=== PATIENT | female | born 1945 | race Caucasian/White ===

== ENCOUNTER 2021-03-13 06:19 | Inpatient (IN) | payer MEDICARE, MEDICAID ==
[~2021-03-13] VITALS: Ht 160 cm; Wt 118.0 kg
[~2021-03-13 06:19] MED LIST: CITA20TA28 PO; FURO-150 PO; LABE100T5 PO; LISI10TA27 PO; OMEP40CA21 PO
[2021-03-13] MEDS: nitroGLYCERIN 0.4mg SUBLingual tab SL PRN ×3 (06:33→06:54)
[2021-03-13] MEDS ORDERED: nitroGLYCERIN 0.4mg/hour patch TD ONE (06:35)
[2021-03-13] MEDS ORDERED: enalaprilat dihydrate 2.5mg/2ml vial IV ONE (06:55)
[2021-03-13] MEDS: carVEDilol 12.5mg tablet PO SCH ×2 (07:12→19:45)
[2021-03-13 07:24] LABS: BASOPHILS # (AUTO) 0.1 X10'3 (0-0.2); BASOPHILS % (AUTO) 0.9 % (0-1); EOSINOPHILS # (AUTO) 0.6 X10'3 (0-0.9); EOSINOPHILS % (AUTO) 7.7 % (0-6); HEMATOCRIT 32.4 % (35.0-45.0); HEMOGLOBIN 10.6 g/dl (12.0-16.0); LYMPHOCYTES # (AUTO) 1.5 X10'3 (1.1-4.8); LYMPHOCYTES % (AUTO) 20.1 % (21-51); MEAN CORPUSCULAR HEMOGLOBIN 28.5 PG (27.0-31.0); MEAN CORPUSCULAR HGB CONC 32.8 g/dL (33.0-36.5); MEAN CORPUSCULAR VOLUME 86.9 FL (78-98); MEAN PLATELET VOLUME 8.1 FL (7.4-10.4); MONOCYTES # (AUTO) 0.5 X10'3 (0-0.9); MONOCYTES % (AUTO) 6.9 % (2-12); NEUTROPHILS # (AUTO) 4.8 X10'3 (1.8-7.7); NEUTROPHILS % (AUTO) 64.4 % (42-75); PLATELET COUNT 215 X10'3 (140-440); RED BLOOD COUNT 3.73 X10'6 (4.20-5.60); WHITE BLOOD COUNT 7.4 X10'3 (4.5-11.0)
[2021-03-13 07:31] LABS: ALANINE AMINOTRANSFERASE 16 U/L (12-78); ALBUMIN 3.1 G/DL (3.4-5.0); ALBUMIN/GLOBULIN RATIO 0.9 (1.1-1.5); ALKALINE PHOSPHATASE 76 IU/L (46-116); ANION GAP 9 (8-16); ASPARTATE AMINO TRANSFERASE 17 U/L (10-37); BILIRUBIN,TOTAL 0.4 MG/DL (0.1-1.0); BLOOD UREA NITROGEN 20 MG/DL (7-18); BUN/CREATININE RATIO 24.1 (6.6-38.0); CALCIUM 8.8 MG/DL (8.5-10.1); CHLORIDE 108 MMOL/L (99-107); CREATININE 0.83 MG/DL (0.40-0.90); GLUCOSE 114 MG/DL (70-104); POTASSIUM 4.2 MMOL/L (3.5-5.1); SODIUM 144 MMOL/L (135-145); TOTAL CARBON DIOXIDE 26.9 MMOL/L (24-32); TOTAL PROTEIN 6.5 G/DL (6.4-8.2); eGFR 67 ML/MIN
[2021-03-13] MEDS ORDERED: metoprolol tartrate 1mg/ml inj IV ONE (08:05)
[2021-03-13] MEDS ORDERED: furosemide 10 MG/1 ML 10ml inj IV ONE (08:05)
[2021-03-13] MEDS ORDERED: NIFEdipine XL 30mg tablet PO ONE (08:15)
[2021-03-13] MEDS ORDERED: POTA-207 PO (08:17)
[2021-03-13] MEDS ORDERED: FURO-150 PO ×2 (08:17→11:04)
--- NOTE | 2021-03-13 10:42 | NUR ---
DR BLAIR MADE AWARE OF SPO2 87% ON ROOM AIR AFTER TRANSFERING FROM BEDSIDE COMMODE TO BED. PLACED BACK ON 2L NC SPO2 93%, BP 135/65, HR 58. NO NEW ORDERS FROM MD AT THIS TIME. PATIENT AWAKE, ALERT, NO SIGNS OF DISTRESS NOTED, ALL SAFETY MEASURES IN PLACE, CALL LIGHT WITHIN REACH.
[2021-03-13] MEDS ORDERED: LISI20TA28 PO (11:04)
[2021-03-13] MEDS ORDERED: FURO20TA4 PO (11:04)
[2021-03-13] MEDS ORDERED: OMEP-50 PO (11:04)
[2021-03-13] MEDS ORDERED: LABE100T5 PO (11:04)
--- NOTE | 2021-03-13 11:53 | NUR ---
CALL TO SISTER CLARIBEL AT THIS TIME TO INFORM HER PATIENT IS GETTING ADMITTED TO HOSPITAL. ALL QUESTIONS AND CONCERNS ADDRESSED PER PATIENT REQUEST.
[2021-03-13] MEDS ORDERED: magnesium Cl slow-release 64mg tablet PO PRN (11:55)
[2021-03-13] MEDS ORDERED: potassium CL 10mEq/100ml bag 100 ML IV PRN (11:55)
[2021-03-13] MEDS ORDERED: magnesium 4gm in 100ml NS 100 ML IV PRN (11:55)
[2021-03-13] MEDS ORDERED: potassium Cl 20 mEq SR tablet PO PRN ×2 (11:55)
[2021-03-13] MEDS ORDERED: ondansetron/PF 4mg/2ml inj IV PRN (11:55)
[2021-03-13] MEDS ORDERED: PERFLUTREN PROTEIN-A MICROSPHR (Optison) 0.22 MG/ML 3ML VIAL IV ONE (11:55)
[2021-03-13] MEDS ORDERED: morphine 2 MG/ML inj. syringe IV PRN (11:55)
[2021-03-13] MEDS ORDERED: HYDROcodone/acetaminophen 5mg/325mg tablet PO PRN (11:55)
[2021-03-13] MEDS ORDERED: mag hydrox/Alum hydrox/simeth 30ml oral suspension PO PRN (11:55)
[2021-03-13] MEDS ORDERED: magnesium 2GM in 50ml NS 50 ML IV PRN (11:55)
[2021-03-13] MEDS ORDERED: acetaminophen 325mg tablet PO PRN ×2 (11:55)
--- NOTE | 2021-03-13 15:49 | NUR ---
telephone report given to quinten fofana.
[2021-03-13 18:00] VITALS: BP 123/73
[2021-03-13] MEDS: heparin, porcine 5000 units/ml vial SQ SCH (19:46)
[2021-03-13] MEDS: K and/or MAG REPLACEMENT MC SCH (19:47)
[2021-03-13] MEDS: furosemide 10 MG/1 ML 10ml inj IV SCH (19:47)
[2021-03-13 22:00] VITALS: BP 130/60
[2021-03-14 02:00] VITALS: BP 135/65
[2021-03-14 06:00] VITALS: BP 134/57
--- NOTE | 2021-03-14 06:15 | NUR ---
Patient in room PCU 3017. I have received report from Catherine MALDONADO and had the opportunity to ask questions and assume patient care.
--- NOTE | 2021-03-14 06:36 | NUR ---
Patient report given, questions answered & plan of care reviewed with oncoming RN.
[2021-03-14 06:58] LABS: BASOPHILS % (AUTO) 0.6 % (0-1); EOSINOPHILS # (AUTO) 0.5 X10'3 (0-0.9); EOSINOPHILS % (AUTO) 6.3 % (0-6); HEMATOCRIT 30.4 % (35.0-45.0); HEMOGLOBIN 10.2 g/dl (12.0-16.0); LYMPHOCYTES # (AUTO) 1.3 X10'3 (1.1-4.8); LYMPHOCYTES % (AUTO) 17.1 % (21-51); MEAN CORPUSCULAR HEMOGLOBIN 28.8 PG (27.0-31.0); MEAN CORPUSCULAR HGB CONC 33.4 g/dL (33.0-36.5); MEAN CORPUSCULAR VOLUME 86.3 FL (78-98); MEAN PLATELET VOLUME 8.1 FL (7.4-10.4); MONOCYTES # (AUTO) 0.6 X10'3 (0-0.9); MONOCYTES % (AUTO) 7.5 % (2-12); NEUTROPHILS # (AUTO) 5.1 X10'3 (1.8-7.7); NEUTROPHILS % (AUTO) 68.5 % (42-75); PLATELET COUNT 220 X10'3 (140-440); RED BLOOD COUNT 3.53 X10'6 (4.20-5.60); RED CELL DISTRIBUTION WIDTH 14.7 % (11.5-14.5); WHITE BLOOD COUNT 7.4 X10'3 (4.5-11.0)
[2021-03-14 07:34] LABS: ALANINE AMINOTRANSFERASE 16 U/L (12-78); ALBUMIN 3.2 G/DL (3.4-5.0); ALKALINE PHOSPHATASE 76 IU/L (46-116); ANION GAP 10 (8-16); ASPARTATE AMINO TRANSFERASE 15 U/L (10-37); BILIRUBIN,TOTAL 0.6 MG/DL (0.1-1.0); BLOOD UREA NITROGEN 19 MG/DL (7-18); BUN/CREATININE RATIO 26.8 (6.6-38.0); CHLORIDE 106 MMOL/L (99-107); CREATININE 0.71 MG/DL (0.40-0.90); GLUCOSE 112 MG/DL (70-104); POTASSIUM 3.8 MMOL/L (3.5-5.1); SODIUM 143 MMOL/L (135-145); TOTAL CARBON DIOXIDE 27.2 MMOL/L (24-32); TOTAL PROTEIN 6.5 G/DL (6.4-8.2); eGFR 80 ML/MIN
[2021-03-14] MEDS ORDERED: labetalol 100mg tablet PO SCH (08:00)
[2021-03-14] MEDS ORDERED: NIFEdipine XL 30mg tablet PO SCH (08:00)
[2021-03-14] MEDS: K and/or MAG REPLACEMENT MC SCH (08:00)
[2021-03-14] MEDS: furosemide 10 MG/1 ML 10ml inj IV SCH (08:24)
[2021-03-14] MEDS: carVEDilol 12.5mg tablet PO SCH (08:24)
[2021-03-14] MEDS: heparin, porcine 5000 units/ml vial SQ SCH (08:25)
[2021-03-14] MEDS ORDERED: pantoprazole 40mg Tablet.DR PO SCH (10:00)
[2021-03-14] MEDS ORDERED: FURO-150 PO (10:02)
[2021-03-14] MEDS ORDERED: NIFE30TA95 PO (10:02)
[2021-03-14] MEDS ORDERED: NITR0.4T51 SL (10:02)
--- NOTE | 2021-03-14 10:49 | NUR ---
O2 Sat at rest on room air:_91_% If below 89%: Recovery O2 Sat at rest on ___LPM:___%:___% via (mask/nasal cannula, etc..) No further documentation is necessary. If O2 Sat did not drop below 89% on room air,ambulate patient on room air. O2 Sat while ambulating on room air:_86_% Recovery O2 Sat while ambulating on _2_LPM:_92_% No further documentation is necessary. If patient does not drop below 89% while ambulating, he/she does not qualify for home O2.
[2021-03-14 11:00] VITALS: BP 117/51
--- NOTE | 2021-03-14 15:20 | NUR ---
Pt DC'd home with sister. Pt alert and oriented and vitals WNL upon DC. per Dr. Simpson: Pt is stable for DC. Iv removed, canula intact. Tele-box removed and returned to tele-tech. DC paperwork printed out and gone over with Pt. Allowed Pt to ask questions concerning Dc and then answered them. New prescriptions called into [facility] pharmacy on [address] Oxygen concentrater dropped off for Pt, pt educated on the use of concentrator. Pt stated that she has a follow up with Dr. Mobley on 04/13/20 and that she will make a follow up with her PCP in 2 weeks time. Pt's belongings gathered and sent with Pt. Pt wheeled down to lobby via wheel chair and left in private vehicle with sister.
== END 2021-03-14 15:20 | disposition home or self-care (01) | DRG 304 ==
LOC: ER 06:19 → ED HOLD 12:05 → UNDOADMIN 12:09 → ED HOLD 12:09 → PCU 3S 16:00
PROVIDERS: ADMIT Internal Medicine; ATTEND Internal Medicine
DX: I16.0 Hypertensive urgency (principal); I50.33 Acute on chronic diastolic (congestive) heart failure; Z68.42 Body mass index [BMI] 45.0-49.9, adult; I11.0 Hypertensive heart disease with heart failure; Z66 Do not resuscitate; H54.8 Legal blindness, as defined in USA; Z20.822 Contact with and (suspected) exposure to COVID-19; R09.82 Postnasal drip; M54.9 Dorsalgia, unspecified; E66.01 Morbid (severe) obesity due to excess calories; I35.0 Nonrheumatic aortic (valve) stenosis; K22.70 Barrett's esophagus without dysplasia; G89.29 Other chronic pain; Z85.3 Personal history of malignant neoplasm of breast; Z87.891 Personal history of nicotine dependence; Z88.2 Allergy status to sulfonamides
CPT/HCPCS: 36415; 71045; 80053; 83880; 84484; 85025; 87635; 93005; 93308; 96374; 96375; 99285; C9803; G0378; J1644; J1940; J3490

== ENCOUNTER 2021-05-07 14:20 | Day surgery (SDC) | payer MEDICARE, BC ==
[2021-05-02 12:24] LABS: BASOPHILS % (AUTO) 0.7 % (0-1); EOSINOPHILS # (AUTO) 0.2 X10'3 (0-0.9); EOSINOPHILS % (AUTO) 3.8 % (0-6); HEMATOCRIT 34.3 % (35.0-45.0); HEMOGLOBIN 10.7 g/dl (12.0-16.0); LYMPHOCYTES # (AUTO) 1.2 X10'3 (1.1-4.8); LYMPHOCYTES % (AUTO) 19.6 % (21-51); MEAN CORPUSCULAR HEMOGLOBIN 27.2 PG (27.0-31.0); MEAN CORPUSCULAR HGB CONC 31.2 g/dL (33.0-36.5); MEAN CORPUSCULAR VOLUME 87.4 FL (78-98); MEAN PLATELET VOLUME 7.9 FL (7.4-10.4); MONOCYTES # (AUTO) 0.5 X10'3 (0-0.9); MONOCYTES % (AUTO) 7.5 % (2-12); NEUTROPHILS # (AUTO) 4.2 X10'3 (1.8-7.7); NEUTROPHILS % (AUTO) 68.4 % (42-75); PLATELET COUNT 217 X10'3 (140-440); RED BLOOD COUNT 3.92 X10'6 (4.20-5.60); RED CELL DISTRIBUTION WIDTH 14.9 % (11.5-14.5); WHITE BLOOD COUNT 6.1 X10'3 (4.5-11.0)
[2021-05-02 12:37] LABS: APTT 24 SECONDS (22-32)
[2021-05-02 13:03] LABS: ALBUMIN 3.3 G/DL (3.4-5.0); ANION GAP 7 (8-16); BLOOD UREA NITROGEN 22 MG/DL (7-18); BUN/CREATININE RATIO 22.9 (6.6-38.0); CALCIUM 8.7 MG/DL (8.5-10.1); CHLORIDE 108 MMOL/L (99-107); CREATININE 0.96 MG/DL (0.40-0.90); GLUCOSE 107 MG/DL (70-104); POTASSIUM 4.6 MMOL/L (3.5-5.1); SODIUM 141 MMOL/L (135-145); TOTAL CARBON DIOXIDE 25.8 MMOL/L (24-32); eGFR 56 ML/MIN
[~2021-05-07] VITALS: Ht 160 cm; Wt 122.2 kg
[~2021-05-07 14:20] MED LIST changes: -LISI10TA27 PO; +NIFE30TA95 PO; +NITR0.4T51 SL; +OMEP20CA16 PO; -OMEP40CA21 PO
[2021-05-07] MEDS ORDERED: verapamil 2.5 mg/ml inj IV ONE ×2 (14:27→14:47)
[2021-05-07] MEDS ORDERED: fentaNYL/PF 50MCG/1 ML 2ML syringe ONE (14:28)
[2021-05-07] MEDS ORDERED: iohexol 350MG/ML 100ml bottle IV ONE (14:28)
[2021-05-07] MEDS ORDERED: midazolam 1 mg/ML 2ml injection ONE ×2 (14:28→16:18)
[2021-05-07] MEDS ORDERED: LIDOcaine 1% (10mg/ml)w/preservative injection 20ml MDV ONE (14:28)
[2021-05-07] MEDS ORDERED: nitroGLYCERIN-Tridil 50MG/D5W 250 ML IV ONE (14:28)
[2021-05-07] MEDS ORDERED: heparin 1,000unit/ml 10ml vial 10 ML ONE (14:28)
[2021-05-07] MEDS ORDERED: LIDOcaine/PRILOcaine 5gm cream TP ONE (14:35)
[2021-05-07 14:42] VITALS: BP 144/46
[2021-05-07] MEDS ORDERED: LORazepam 0.5 MG tablet PO PRN (14:45)
[2021-05-07] MEDS ORDERED: diphenhydrAMINE 25mg capsule PO PRN (14:45)
[2021-05-07] MEDS ORDERED: normal saline 1,000 ML IV SCH (14:45)
[2021-05-07] MEDS ORDERED: ASPI-1071 PO (15:04)
[2021-05-07] MEDS ORDERED: NITR0.4T48 (15:04)
[2021-05-07] MEDS ORDERED: CITA20TA28 PO (15:04)
[2021-05-07] MEDS ORDERED: FURO20TA4 PO (15:04)
[2021-05-07] MEDS ORDERED: NIFE60TA79 PO (15:04)
[2021-05-07] MEDS ORDERED: iohexol 350 MG/ML 50ML vial IV ONE (16:29)
[2021-05-07 16:56] VITALS: BP 148/73
[2021-05-07] MEDS ORDERED: proCHLORperazine 10 MG/2 ml inj IV PRN (17:05)
[2021-05-07] MEDS ORDERED: HYDROcodone/acetaminophen 5mg/325mg tablet PO PRN (17:05)
[2021-05-07] MEDS ORDERED: OXAZEpam 15mg capsule PO PRN (17:05)
[2021-05-07] MEDS ORDERED: ondansetron/PF 4mg/2ml inj IV PRN (17:05)
[2021-05-07] MEDS ORDERED: HYDROcodone/acetaminophen 10/325mg tab PO PRN (17:05)
[2021-05-07 17:15] VITALS: BP 174/86
[2021-05-07 17:30] VITALS: BP 159/72
== END 2021-05-07 19:35 | disposition home or self-care (01) ==
LOC: SSTAY O 14:20
PROVIDERS: ATTEND Internal Medicine Interventional Cardiology
DX: I35.0 Nonrheumatic aortic (valve) stenosis (principal); I25.10 Atherosclerotic heart disease of native coronary artery without angina pectoris; I11.0 Hypertensive heart disease with heart failure; I50.9 Heart failure, unspecified; K21.9 Gastro-esophageal reflux disease without esophagitis; F32.A Depression, unspecified; E66.01 Morbid (severe) obesity due to excess calories; Z68.42 Body mass index [BMI] 45.0-49.9, adult; Z79.899 Other long term (current) drug therapy; Z85.3 Personal history of malignant neoplasm of breast; Z90.11 Acquired absence of right breast and nipple; Z98.84 Bariatric surgery status; Z88.2 Allergy status to sulfonamides; Z87.891 Personal history of nicotine dependence
CPT/HCPCS: 36415; 80048; 85025; 85610; 85730; 93456; 99152; C1751; C1769; C1894; J1644; J2250; J3010; J3490; Q0163; Q9967; 99153; A4620; A5120; A6258

== ENCOUNTER 2021-06-12 08:05 | Outpatient (CLI) | payer MEDICARE, BC ==
[~2021-06-12] VITALS: Ht 160 cm; Wt 117.9 kg
[~2021-06-12 08:05] MED LIST changes: +ASPI-1071 PO; -FURO-150 PO; +FURO20TA4 PO; -NIFE30TA95 PO; +NIFE60TA79 PO; +NITR0.4T48; -NITR0.4T51 SL
[2021-06-12 08:49] LABS: BASOPHILS # (AUTO) 0.1 X10'3 (0-0.2); BASOPHILS % (AUTO) 1.2 % (0-1); EOSINOPHILS # (AUTO) 0.2 X10'3 (0-0.9); EOSINOPHILS % (AUTO) 3.7 % (0-6); HEMATOCRIT 32.8 % (35.0-45.0); HEMOGLOBIN 10.7 g/dl (12.0-16.0); LYMPHOCYTES # (AUTO) 1.1 X10'3 (1.1-4.8); LYMPHOCYTES % (AUTO) 19.2 % (21-51); MEAN CORPUSCULAR HEMOGLOBIN 26.9 PG (27.0-31.0); MEAN CORPUSCULAR HGB CONC 32.6 g/dL (33.0-36.5); MEAN CORPUSCULAR VOLUME 82.6 FL (78-98); MEAN PLATELET VOLUME 8.1 FL (7.4-10.4); MONOCYTES # (AUTO) 0.4 X10'3 (0-0.9); MONOCYTES % (AUTO) 6.8 % (2-12); NEUTROPHILS % (AUTO) 69.1 % (42-75); PLATELET COUNT 242 X10'3 (140-440); RED BLOOD COUNT 3.97 X10'6 (4.20-5.60); RED CELL DISTRIBUTION WIDTH 15.7 % (11.5-14.5); WHITE BLOOD COUNT 5.8 X10'3 (4.5-11.0)
[2021-06-12 08:51] LABS: APTT 24 SECONDS (22-32)
[2021-06-12 08:53] LABS: ALANINE AMINOTRANSFERASE 18 U/L (12-78); ALBUMIN 3.3 G/DL (3.4-5.0); ALBUMIN/GLOBULIN RATIO 0.9 (1.1-1.5); ALKALINE PHOSPHATASE 71 IU/L (46-116); ANION GAP 10 (8-16); ASPARTATE AMINO TRANSFERASE 19 U/L (10-37); BILIRUBIN,TOTAL 0.3 MG/DL (0.1-1.0); BLOOD UREA NITROGEN 26 MG/DL (7-18); BUN/CREATININE RATIO 28.6 (6.6-38.0); CALCIUM 8.8 MG/DL (8.5-10.1); CHLORIDE 107 MMOL/L (99-107); CREATININE 0.91 MG/DL (0.40-0.90); GLUCOSE 101 MG/DL (70-104); POTASSIUM 4.2 MMOL/L (3.5-5.1); SODIUM 143 MMOL/L (135-145); TOTAL PROTEIN 6.9 G/DL (6.4-8.2); eGFR 60 ML/MIN
[2021-06-12 09:09] LABS: ABG BASE EXCESS -0.1 mmol/L (-2.0-2.0); ABG HCO3 24.3 mmol/L (22.0-26.0); ABG OXYGEN SATURATION 93.4 % (94-97); ABG PCO2 (T) 38.8 mmHg (32.0-45.0); ABG PO2 (T) 66.8 mmHg (75.0-100.0); ALLEN'S TEST POSITIVE; FCOHb 1.2 % (0.0-3.9); FMetHb 0.3 % (0.0-1.5); TOTAL HEMOGLOBIN 11.3 G/dl (12.0-16.0)
[2021-06-12] MEDS ORDERED: albuterol 2.5 MG/3 ML nebule NEB ONE (09:10)
[2021-06-12] MEDS ORDERED: IODIXANOL 320 MG/ML INFUS..BTL 50ML IV ONE (09:35)
[2021-06-12] MEDS ORDERED: IODIXANOL 320 MG/ML INFUS..BTL 100ML IV ONE (09:35)
== END 2021-06-12 23:59 | disposition home or self-care (01) ==
LOC: RAD 08:05
PROVIDERS: ATTEND Internal Medicine Cardiovascular Disease
DX: K57.30 Diverticulosis of large intestine without perforation or abscess without bleeding (principal); M47.819 Spondylosis without myelopathy or radiculopathy, site unspecified; M16.10 Unilateral primary osteoarthritis, unspecified hip; M79.89 Other specified soft tissue disorders; I70.0 Atherosclerosis of aorta; I27.20 Pulmonary hypertension, unspecified; R94.2 Abnormal results of pulmonary function studies; I08.0 Rheumatic disorders of both mitral and aortic valves; R06.02 Shortness of breath; I65.29 Occlusion and stenosis of unspecified carotid artery; Z20.822 Contact with and (suspected) exposure to COVID-19; Z90.49 Acquired absence of other specified parts of digestive tract
CPT/HCPCS: 36415; 36600; 71046; 71275; 74174; 80053; 82803; 85018; 85025; 85610; 85730; 87635; 94060; 94727; 94729; 94760; C9803; Q9967

== ENCOUNTER 2023-12-26 11:03 | Inpatient (IN) | payer MEDICARE, MEDICAID ==
[~2023-12-26] VITALS: Ht 157.5 cm; Wt 124.7 kg
[2023-12-26] VITALS (12 sets, daily range): BP systolic 91–141; BP diastolic 53–79; PULSE 122–128; RESP 15–19; TEMP 97.6–98.6; O2SAT 92–97
[~2023-12-26 11:03] MED LIST changes: -LABE100T5 PO; +LABE100T8 PO; +LOPE-144 PO; +NIFE-73 PO; -NIFE60TA79 PO; -NITR0.4T48; +NITR0.4T51 SL
[2023-12-26 11:52] LABS: BASOPHILS % (AUTO) 0.7 % (0-1); EOSINOPHILS # (AUTO) 0.2 X10'3 (0-0.9); EOSINOPHILS % (AUTO) 3.7 % (0-6); HEMATOCRIT 29.2 % (35.0-45.0); HEMOGLOBIN 9.3 g/dl (12.0-16.0); LYMPHOCYTES # (AUTO) 1.1 X10'3 (1.1-4.8); LYMPHOCYTES % (AUTO) 18.5 % (21-51); MEAN CORPUSCULAR HGB CONC 31.8 g/dL (33.0-36.5); MEAN CORPUSCULAR VOLUME 84.7 FL (78-98); MEAN PLATELET VOLUME 8.2 FL (7.4-10.4); MONOCYTES # (AUTO) 0.4 X10'3 (0-0.9); MONOCYTES % (AUTO) 7.5 % (2-12); NEUTROPHILS # (AUTO) 4.2 X10'3 (1.8-7.7); NEUTROPHILS % (AUTO) 69.6 % (42-75); PLATELET COUNT 210 X10'3 (140-440); RED BLOOD COUNT 3.45 X10'6 (4.20-5.60); RED CELL DISTRIBUTION WIDTH 16.5 % (11.5-14.5)
[2023-12-26] MEDS: nitroGLYCERIN 1gm ointment UD TP ONE (11:52)
[2023-12-26] MEDS: furosemide 10 MG/1 ML 10ml inj IV ONE (11:52)
[2023-12-26] MEDS: sotalol HCl 40mg (1/2 tablet) PO ONE (12:21)
[2023-12-26 12:32] LABS: ALANINE AMINOTRANSFERASE 23 U/L (12-78); ALBUMIN 2.9 G/DL (3.4-5.0); ALBUMIN/GLOBULIN RATIO 0.8 (1.1-1.5); ALKALINE PHOSPHATASE 108 IU/L (46-116); ANION GAP 5 (8-16); ASPARTATE AMINO TRANSFERASE 17 U/L (10-37); BILIRUBIN,TOTAL 0.6 MG/DL (0.1-1.0); BLOOD UREA NITROGEN 22 MG/DL (7-18); BUN/CREATININE RATIO 21.2 (10.0-20.0); CALCIUM 9.5 MG/DL (8.5-10.1); CHLORIDE 107 MMOL/L (99-107); CREATININE 1.04 MG/DL (0.40-0.90); GLUCOSE 126 MG/DL (70-104); MAGNESIUM 1.8 MG/DL (1.5-2.4); POTASSIUM 3.6 MMOL/L (3.5-5.1); PRO BRAIN NATRIURETIC PEPTIDE 8715 PG/ML (0-450); SODIUM 141 MMOL/L (135-145); TOTAL CARBON DIOXIDE 28.7 MMOL/L (24-32); TOTAL PROTEIN 6.5 G/DL (6.4-8.2); eCRCL 34 ML/MIN; eGFR 51 ML/MIN
[2023-12-26] MEDS ORDERED: magnesium sulf-water 2g/50mL 50 ML IV PRN (13:10)
[2023-12-26] MEDS ORDERED: magnesium Cl slow-release 64mg tablet PO PRN (13:10)
[2023-12-26] MEDS ORDERED: magnesium sulf-water 4G/100mL 100 ML IV PRN (13:10)
[2023-12-26] MEDS ORDERED: ondansetron/PF 4mg/2ml inj IV PRN (13:10)
[2023-12-26] MEDS ORDERED: potassium Cl 40MEQ/1/2NS 520ml 520 ML IV PRN (13:10)
[2023-12-26] MEDS ORDERED: potassium Cl 20 mEq SR tablet PO PRN (13:10)
[2023-12-26] MEDS: pantoprazole 40mg Tablet.DR PO SCH (15:30)
[2023-12-26] MEDS: acetaminophen 325mg tablet PO SCH (16:00)
[2023-12-26] MEDS: diltiazem-NS 100mg/100ml 100 ML IV SCH ×2 (16:36→21:10)
[2023-12-26] MEDS ORDERED: SERT-432 PO (19:28)
[2023-12-26] MEDS ORDERED: SOTA80TA (19:28)
[2023-12-26] MEDS ORDERED: POTA-188 (19:28)
[2023-12-26] MEDS ORDERED: ATOR40TA72 PO (19:30)
[2023-12-26] MEDS ORDERED: RIVA15TA PO (19:30)
[2023-12-26] MEDS: furosemide 20 MG/2 ML vial IV SCH (20:16)
[2023-12-26] MEDS: heparin, porcine 5000 units/ml vial SQ SCH (20:18)
[2023-12-27] VITALS (15 sets, daily range): BP systolic 117–145; BP diastolic 53–87; PULSE 83–128; RESP 15–20; TEMP 97.5–98.4; O2SAT 91–98
[2023-12-27 05:57] LABS: BASOPHILS % (AUTO) 0.8 % (0-1); EOSINOPHILS # (AUTO) 0.3 X10'3 (0-0.9); EOSINOPHILS % (AUTO) 4.9 % (0-6); HEMATOCRIT 27.4 % (35.0-45.0); HEMOGLOBIN 8.7 g/dl (12.0-16.0); LYMPHOCYTES # (AUTO) 1.4 X10'3 (1.1-4.8); LYMPHOCYTES % (AUTO) 23.1 % (21-51); MEAN CORPUSCULAR HEMOGLOBIN 26.7 PG (27.0-31.0); MEAN CORPUSCULAR HGB CONC 31.7 g/dL (33.0-36.5); MEAN PLATELET VOLUME 8.3 FL (7.4-10.4); MONOCYTES # (AUTO) 0.5 X10'3 (0-0.9); MONOCYTES % (AUTO) 8.5 % (2-12); NEUTROPHILS # (AUTO) 3.8 X10'3 (1.8-7.7); NEUTROPHILS % (AUTO) 62.7 % (42-75); PLATELET COUNT 213 X10'3 (140-440); RED BLOOD COUNT 3.26 X10'6 (4.20-5.60); RED CELL DISTRIBUTION WIDTH 16.3 % (11.5-14.5); WHITE BLOOD COUNT 6.1 X10'3 (4.5-11.0)
[2023-12-27 06:22] LABS: ALANINE AMINOTRANSFERASE 19 U/L (12-78); ALBUMIN 2.7 G/DL (3.4-5.0); ALBUMIN/GLOBULIN RATIO 0.9 (1.1-1.5); ALKALINE PHOSPHATASE 94 IU/L (46-116); ANION GAP 6 (8-16); ASPARTATE AMINO TRANSFERASE 16 U/L (10-37); BILIRUBIN,TOTAL 0.6 MG/DL (0.1-1.0); BLOOD UREA NITROGEN 22 MG/DL (7-18); BUN/CREATININE RATIO 20.4 (10.0-20.0); CALCIUM 8.8 MG/DL (8.5-10.1); CHLORIDE 106 MMOL/L (99-107); CREATININE 1.08 MG/DL (0.40-0.90); GLUCOSE 99 MG/DL (70-104); POTASSIUM 3.1 MMOL/L (3.5-5.1); SODIUM 143 MMOL/L (135-145); TOTAL PROTEIN 5.8 G/DL (6.4-8.2); eCRCL 33 ML/MIN; eGFR 49 ML/MIN
[2023-12-27] MEDS: sotalol 80mg tablet PO SCH (08:20)
[2023-12-27] MEDS: potassium Cl 20 mEq SR tablet PO PRN (14:24)
[2023-12-27] MEDS: FLU VACC TS2024-25(6MOS UP)/PF 45 MCG/0.5 ML SYRINGE IMVAC ONE (14:26)
[2023-12-27] MEDS: pneumococcal 23-VAL P-sac vacc 25 mcg/0.5ml vial IMVAC ONE (14:27)
[2023-12-27] MEDS ORDERED: ondansetron 4mg rapidly disintigrating tab PO PRN (14:40)
[2023-12-27] MEDS: acetaminophen 325mg tablet PO PRN (14:58)
[2023-12-27] MEDS: rivaroxaban 15mg tablet PO SCH (20:59)
[2023-12-27] MEDS: LIDOCAINE 5% OINTMENT 35GM TP SCH (21:57)
[2023-12-28 02:00] VITALS: BP 126/54; PULSE 79; RESP 15; TEMP 97.6; O2SAT 95
[2023-12-28] MEDS ORDERED: normal saline 1000ml 1,000 ML IV SCH (02:30)
[2023-12-28 03:10] VITALS: O2SAT 95
[2023-12-28 06:00] VITALS: BP 115/54; PULSE 81; RESP 17; TEMP 97.9; O2SAT 93
[2023-12-28 07:03] LABS: ALANINE AMINOTRANSFERASE 15 U/L (12-78); ALBUMIN 2.5 G/DL (3.4-5.0); ALBUMIN/GLOBULIN RATIO 0.8 (1.1-1.5); ALKALINE PHOSPHATASE 88 IU/L (46-116); ANION GAP 4 (8-16); ASPARTATE AMINO TRANSFERASE 16 U/L (10-37); BILIRUBIN,TOTAL 0.5 MG/DL (0.1-1.0); BLOOD UREA NITROGEN 26 MG/DL (7-18); BUN/CREATININE RATIO 23.6 (10.0-20.0); CALCIUM 8.1 MG/DL (8.5-10.1); CHLORIDE 107 MMOL/L (99-107); GLUCOSE 97 MG/DL (70-104); POTASSIUM 3.2 MMOL/L (3.5-5.1); SODIUM 142 MMOL/L (135-145); TOTAL PROTEIN 5.8 G/DL (6.4-8.2); eCRCL 32 ML/MIN; eGFR 48 ML/MIN
[2023-12-28 07:13] LABS: BASOPHILS % (AUTO) 0.6 % (0-1); EOSINOPHILS # (AUTO) 0.3 X10'3 (0-0.9); EOSINOPHILS % (AUTO) 4.5 % (0-6); HEMATOCRIT 28.6 % (35.0-45.0); HEMOGLOBIN 9.1 g/dl (12.0-16.0); LYMPHOCYTES # (AUTO) 1.5 X10'3 (1.1-4.8); LYMPHOCYTES % (AUTO) 22.5 % (21-51); MEAN CORPUSCULAR HEMOGLOBIN 26.7 PG (27.0-31.0); MEAN CORPUSCULAR HGB CONC 31.7 g/dL (33.0-36.5); MEAN CORPUSCULAR VOLUME 84.2 FL (78-98); MEAN PLATELET VOLUME 8.1 FL (7.4-10.4); MONOCYTES # (AUTO) 0.6 X10'3 (0-0.9); MONOCYTES % (AUTO) 9.4 % (2-12); NEUTROPHILS # (AUTO) 4.2 X10'3 (1.8-7.7); PLATELET COUNT 210 X10'3 (140-440); RED CELL DISTRIBUTION WIDTH 16.5 % (11.5-14.5); WHITE BLOOD COUNT 6.7 X10'3 (4.5-11.0)
[2023-12-28 08:00] VITALS: RESP 17; O2SAT 93
[2023-12-28] MEDS ORDERED: non-formulary drug (Omeprazole 1 CAP) PO SCH (08:00)
[2023-12-28] MEDS: DAPAGLIFLOZIN 10MG TABLET PO SCH (09:38)
[2023-12-28] MEDS: atorvastatin 20mg tablet PO SCH (09:38)
[2023-12-28] MEDS: sertraline 25mg tablet PO SCH (09:40)
[2023-12-28] MEDS: losartan 50mg tablet PO SCH (09:41)
[2023-12-28] MEDS ORDERED: LEG1EACH88 (10:12)
[2023-12-28] MEDS ORDERED: LOSA50TA64 PO (10:16)
[2023-12-28] MEDS ORDERED: SOTA80TA73 PO (10:16)
[2023-12-28] MEDS ORDERED: POTA-197 PO (10:16)
[2023-12-28] MEDS ORDERED: DAPA10TA PO (10:16)
[2023-12-28 12:11] VITALS: BP 109/73; PULSE 120; RESP 18; TEMP 96.9; O2SAT 95
[2023-12-28 12:14] VITALS: PULSE 116
[2023-12-30] MEDS ORDERED: EMPA10TA PO (17:59)
== END 2023-12-28 14:53 | disposition home or self-care (01) | DRG 291 ==
LOC: ER 11:04 → ED HOLD 13:16 → PCU 3S 19:30
PROVIDERS: ADMIT Internal Medicine; ATTEND Internal Medicine
DX: I13.0 Hypertensive heart and chronic kidney disease with heart failure and stage 1 through stage 4 chronic kidney disease, or unspecified chronic kidney disease (principal); I50.43 Acute on chronic combined systolic (congestive) and diastolic (congestive) heart failure; J96.00 Acute respiratory failure, unspecified whether with hypoxia or hypercapnia; D64.9 Anemia, unspecified; H35.30 Unspecified macular degeneration; H54.8 Legal blindness, as defined in USA; E87.6 Hypokalemia; N18.30 Chronic kidney disease, stage 3 unspecified; I48.91 Unspecified atrial fibrillation; M17.0 Bilateral primary osteoarthritis of knee; Z79.01 Long term (current) use of anticoagulants; Z79.899 Other long term (current) drug therapy; Z85.3 Personal history of malignant neoplasm of breast; Z87.891 Personal history of nicotine dependence; Z88.2 Allergy status to sulfonamides; Z95.2 Presence of prosthetic heart valve; Z91.048 Other nonmedicinal substance allergy status; I34.0 Nonrheumatic mitral (valve) insufficiency
CPT/HCPCS: 36415; 71045; 80053; 83735; 83880; 84484; 85025; 87081; 87502; 87503; 87811; 93005; 93306; 96374; 97110; 97116; 97162; 99285; G0378; J1644; J1940; J3490

== ENCOUNTER 2024-01-16 15:28 | Inpatient (IN) | payer MEDICARE, MEDICAID ==
[~2024-01-16] VITALS: Ht 157.5 cm; Wt 122.1 kg
[~2024-01-16 15:28] MED LIST changes: -ASPI-1071 PO; +ATOR40TA72 PO; -CITA20TA28 PO; +EMPA10TA PO; -LABE100T8 PO; +LEG1EACH88; -LOPE-144 PO; +LOSA50TA64 PO; -NIFE-73 PO; -NITR0.4T51 SL; +POTA-197 PO; +RIVA15TA PO; +SERT-432 PO; +SOTA80TA73 PO
[2024-01-16 16:38] LABS: BASOPHILS % (AUTO) 0.6 % (0-1); EOSINOPHILS # (AUTO) 0.2 X10'3 (0-0.9); EOSINOPHILS % (AUTO) 3.7 % (0-6); HEMATOCRIT 28.8 % (35.0-45.0); HEMOGLOBIN 9.1 g/dl (12.0-16.0); LYMPHOCYTES # (AUTO) 1.3 X10'3 (1.1-4.8); LYMPHOCYTES % (AUTO) 20.1 % (21-51); MEAN CORPUSCULAR HEMOGLOBIN 26.4 PG (27.0-31.0); MEAN CORPUSCULAR HGB CONC 31.5 g/dL (33.0-36.5); MEAN CORPUSCULAR VOLUME 83.8 FL (78-98); MEAN PLATELET VOLUME 8.1 FL (7.4-10.4); MONOCYTES # (AUTO) 0.5 X10'3 (0-0.9); MONOCYTES % (AUTO) 8.1 % (2-12); NEUTROPHILS # (AUTO) 4.4 X10'3 (1.8-7.7); NEUTROPHILS % (AUTO) 67.5 % (42-75); PLATELET COUNT 211 X10'3 (140-440); RED BLOOD COUNT 3.43 X10'6 (4.20-5.60); WHITE BLOOD COUNT 6.6 X10'3 (4.5-11.0)
[2024-01-16 16:47] LABS: ALBUMIN 3.2 G/DL (3.4-5.0); ANION GAP 5 (8-16); BLOOD UREA NITROGEN 19 MG/DL (7-18); BUN/CREATININE RATIO 18.8 (10.0-20.0); CALCIUM 8.6 MG/DL (8.5-10.1); CHLORIDE 106 MMOL/L (99-107); CREATININE 1.01 MG/DL (0.40-0.90); GLUCOSE 119 MG/DL (70-104); POTASSIUM 3.9 MMOL/L (3.5-5.1); SODIUM 140 MMOL/L (135-145); TOTAL CARBON DIOXIDE 29.1 MMOL/L (24-32); eCRCL 35 ML/MIN; eGFR 53 ML/MIN
[2024-01-16 16:50] LABS: APTT 24 SECONDS (22-32); INR 1.1 INR; PROTHROMBIN TIME 11.1 SECONDS (9.0-12.0)
[2024-01-16] MEDS ORDERED: iohexol 350MG/ML 100ml bottle IV ONE (16:59)
[2024-01-16] MEDS ORDERED: METO-384 PO (17:33)
[2024-01-16] MEDS ORDERED: GABA300C PO (17:33)
[2024-01-16] MEDS: aspirin 81mg tab.chew PO ONE (17:49)
[2024-01-16] MEDS ORDERED: potassium Cl 20 mEq SR tablet PO PRN (17:50)
[2024-01-16] MEDS ORDERED: magnesium Cl slow-release 64mg tablet PO PRN (17:50)
[2024-01-16] MEDS ORDERED: acetaminophen 325mg tablet PO PRN (17:50)
[2024-01-16] MEDS ORDERED: magnesium sulf-water 2g/50mL 50 ML IV PRN (17:50)
[2024-01-16] MEDS ORDERED: potassium Cl 40MEQ/1/2NS 520ml 520 ML IV PRN (17:50)
[2024-01-16] MEDS ORDERED: ondansetron/PF 4mg/2ml inj IV PRN (17:50)
[2024-01-16] MEDS ORDERED: magnesium sulf-water 4G/100mL 100 ML IV PRN (17:50)
[2024-01-16] MEDS: normal saline 1000ml 1,000 ML IV SCH (18:23)
[2024-01-16] MEDS: clopidogrel 75mg tablet PO SCH (18:26)
[2024-01-16] MEDS: heparin, porcine 5000 units/ml vial SQ SCH (20:00)
[2024-01-16] MEDS ORDERED: gabapentin 400mg capsule PO STA (23:07)
[2024-01-16] MEDS: gabapentin 300mg capsule PO STA (23:43)
[2024-01-17 03:57] LABS: BASOPHILS % (AUTO) 0.7 % (0-1); EOSINOPHILS # (AUTO) 0.3 X10'3 (0-0.9); HEMATOCRIT 25.5 % (35.0-45.0); LYMPHOCYTES # (AUTO) 1.5 X10'3 (1.1-4.8); LYMPHOCYTES % (AUTO) 24.1 % (21-51); MEAN CORPUSCULAR HGB CONC 31.4 g/dL (33.0-36.5); MEAN CORPUSCULAR VOLUME 82.7 FL (78-98); MEAN PLATELET VOLUME 8.3 FL (7.4-10.4); MONOCYTES # (AUTO) 0.5 X10'3 (0-0.9); MONOCYTES % (AUTO) 8.2 % (2-12); NEUTROPHILS # (AUTO) 3.8 X10'3 (1.8-7.7); PLATELET COUNT 189 X10'3 (140-440); RED BLOOD COUNT 3.09 X10'6 (4.20-5.60); RED CELL DISTRIBUTION WIDTH 16.3 % (11.5-14.5); WHITE BLOOD COUNT 6.1 X10'3 (4.5-11.0)
[2024-01-17 04:16] LABS: ALANINE AMINOTRANSFERASE 16 U/L (12-78); ALBUMIN 2.4 G/DL (3.4-5.0); ALBUMIN/GLOBULIN RATIO 0.8 (1.1-1.5); ALKALINE PHOSPHATASE 94 IU/L (46-116); ANION GAP 6 (8-16); ASPARTATE AMINO TRANSFERASE 16 U/L (10-37); BILIRUBIN,TOTAL 0.5 MG/DL (0.1-1.0); BLOOD UREA NITROGEN 14 MG/DL (7-18); BUN/CREATININE RATIO 16.5 (10.0-20.0); CALCIUM 8.4 MG/DL (8.5-10.1); CHLORIDE 110 MMOL/L (99-107); CREATININE 0.85 MG/DL (0.40-0.90); GLUCOSE 91 MG/DL (70-104); POTASSIUM 3.7 MMOL/L (3.5-5.1); SODIUM 142 MMOL/L (135-145); TOTAL CARBON DIOXIDE 26.4 MMOL/L (24-32); TOTAL PROTEIN 5.5 G/DL (6.4-8.2); eCRCL 42 ML/MIN; eGFR 64 ML/MIN
[2024-01-17] MEDS: atorvastatin 20mg tablet PO SCH ×2 (07:34→07:45)
[2024-01-17] MEDS: sertraline 25mg tablet PO SCH (07:43)
[2024-01-17] MEDS: losartan 50mg tablet PO SCH (07:43)
[2024-01-17] MEDS: pantoprazole 40mg Tablet.DR PO SCH (07:45)
[2024-01-17] MEDS: aspirin 81mg, enteric-coated 1 TAB TABLET.DR PO SCH (07:45)
[2024-01-17] MEDS: gabapentin 300mg capsule PO SCH (07:45)
[2024-01-17] MEDS: EMPAGLIFLOZIN 10 MG TABLET PO SCH (07:45)
[2024-01-17] MEDS: metoprolol succinate 25mg (24-HOUR) SR. Tablet PO SCH (07:46)
[2024-01-17] MEDS: furosemide 20MG tablet PO SCH (07:47)
[2024-01-17 12:08] VITALS: BP 117/49; PULSE 75; RESP 15; TEMP 97.8; O2SAT 93
[2024-01-17] MEDS: mag hydrox/Alum hydrox/simeth 30ml oral suspension PO ONE (13:37)
[2024-01-17 15:15] LABS: HEMOGLOBIN A1C 6.3 % (4.5-6.2)
[2024-01-17 15:23] LABS: CHOL/HDL RATIO 2.2 (0.00-4.99); CHOLESTEROL 109 MG/DL (0-200); HDL CHOLESTEROL 50 MG/DL (35-60); LDL CHOLESTEROL 46 MG/DL (50-100); THYROID STIMULATING HORMONE 1.45 ulU/ml (0.34-4.50); TRIGLYCERIDES 88 MG/DL (20-135)
[2024-01-17 16:08] VITALS: BP 148/52; PULSE 78; RESP 15; TEMP 97.8; O2SAT 94
[2024-01-17] MEDS: rivaroxaban 15mg tablet PO SCH (17:27)
[2024-01-17 18:00] VITALS: BP 148/52; PULSE 78; RESP 15; TEMP 97.8; O2SAT 94
[2024-01-17 20:00] VITALS: RESP 15; O2SAT 94
[2024-01-17] MEDS: acetaminophen 325mg tablet PO PRN (21:13)
[2024-01-17 22:00] VITALS: BP 163/62; PULSE 76; RESP 18; TEMP 97.8; O2SAT 92
[2024-01-18 05:49] LABS: BASOPHILS % (AUTO) 0.4 % (0-1); EOSINOPHILS # (AUTO) 0.3 X10'3 (0-0.9); EOSINOPHILS % (AUTO) 5.5 % (0-6); HEMATOCRIT 28.2 % (35.0-45.0); HEMOGLOBIN 9.1 g/dl (12.0-16.0); LYMPHOCYTES # (AUTO) 1.2 X10'3 (1.1-4.8); LYMPHOCYTES % (AUTO) 19.9 % (21-51); MEAN CORPUSCULAR HEMOGLOBIN 26.5 PG (27.0-31.0); MEAN CORPUSCULAR HGB CONC 32.1 g/dL (33.0-36.5); MEAN CORPUSCULAR VOLUME 82.6 FL (78-98); MEAN PLATELET VOLUME 8.1 FL (7.4-10.4); MONOCYTES # (AUTO) 0.6 X10'3 (0-0.9); MONOCYTES % (AUTO) 9.9 % (2-12); NEUTROPHILS # (AUTO) 3.9 X10'3 (1.8-7.7); NEUTROPHILS % (AUTO) 64.3 % (42-75); PLATELET COUNT 197 X10'3 (140-440); RED BLOOD COUNT 3.42 X10'6 (4.20-5.60); RED CELL DISTRIBUTION WIDTH 16.1 % (11.5-14.5); WHITE BLOOD COUNT 6.1 X10'3 (4.5-11.0)
[2024-01-18 06:00] VITALS: BP 174/67; PULSE 75; RESP 16; TEMP 97.9; O2SAT 94
[2024-01-18 06:14] LABS: ALANINE AMINOTRANSFERASE 20 U/L (12-78); ALBUMIN 2.4 G/DL (3.4-5.0); ALBUMIN/GLOBULIN RATIO 0.7 (1.1-1.5); ALKALINE PHOSPHATASE 93 IU/L (46-116); ANION GAP 6 (8-16); ASPARTATE AMINO TRANSFERASE 16 U/L (10-37); BILIRUBIN,TOTAL 0.6 MG/DL (0.1-1.0); BLOOD UREA NITROGEN 11 MG/DL (7-18); BUN/CREATININE RATIO 11.2 (10.0-20.0); CALCIUM 8.4 MG/DL (8.5-10.1); CHLORIDE 110 MMOL/L (99-107); CREATININE 0.98 MG/DL (0.40-0.90); GLUCOSE 91 MG/DL (70-104); POTASSIUM 3.6 MMOL/L (3.5-5.1); SODIUM 143 MMOL/L (135-145); TOTAL CARBON DIOXIDE 27.5 MMOL/L (24-32); TOTAL PROTEIN 5.7 G/DL (6.4-8.2); eCRCL 36 ML/MIN; eGFR 55 ML/MIN
[2024-01-18] MEDS: LORazepam 1 MG tablet PO ONE (07:45)
[2024-01-18 10:00] VITALS: BP 116/68; PULSE 74; RESP 18; TEMP 97.3; O2SAT 90; O2SAT 94
[2024-01-18] MEDS ORDERED: HYDROcodone/acetaminophen 5mg/325mg tablet PO PRN (10:55)
[2024-01-18] MEDS ORDERED: HYDROcodone/acetaminophen 10/325mg tab PO PRN (10:55)
[2024-01-18 11:40] VITALS: BP 182/74; PULSE 75
[2024-01-18 14:00] VITALS: BP 132/97; PULSE 75; RESP 15; TEMP 97.6; O2SAT 94
[2024-01-18 18:00] VITALS: BP 111/49; PULSE 75; RESP 14; TEMP 98.3; O2SAT 92
[2024-01-18 22:00] VITALS: BP 168/49; PULSE 75; RESP 15; TEMP 97.1; O2SAT 93
[2024-01-19] VITALS (10 sets, daily range): BP systolic 121–186; BP diastolic 32–82; PULSE 74–77; RESP 12–18; TEMP 96.5–98.2; O2SAT 94–96
[2024-01-19 06:23] LABS: BASOPHILS % (AUTO) 0.7 % (0-1); EOSINOPHILS # (AUTO) 0.4 X10'3 (0-0.9); EOSINOPHILS % (AUTO) 6.8 % (0-6); HEMATOCRIT 29.4 % (35.0-45.0); HEMOGLOBIN 9.4 g/dl (12.0-16.0); LYMPHOCYTES # (AUTO) 1.3 X10'3 (1.1-4.8); LYMPHOCYTES % (AUTO) 22.3 % (21-51); MEAN CORPUSCULAR HEMOGLOBIN 26.4 PG (27.0-31.0); MEAN CORPUSCULAR HGB CONC 32.1 g/dL (33.0-36.5); MEAN CORPUSCULAR VOLUME 82.1 FL (78-98); MEAN PLATELET VOLUME 7.9 FL (7.4-10.4); MONOCYTES # (AUTO) 0.5 X10'3 (0-0.9); MONOCYTES % (AUTO) 8.8 % (2-12); NEUTROPHILS # (AUTO) 3.7 X10'3 (1.8-7.7); NEUTROPHILS % (AUTO) 61.4 % (42-75); PLATELET COUNT 205 X10'3 (140-440); RED BLOOD COUNT 3.58 X10'6 (4.20-5.60); RED CELL DISTRIBUTION WIDTH 16.2 % (11.5-14.5)
[2024-01-19 06:49] LABS: ALANINE AMINOTRANSFERASE 17 U/L (12-78); ALBUMIN 2.5 G/DL (3.4-5.0); ALBUMIN/GLOBULIN RATIO 0.7 (1.1-1.5); ALKALINE PHOSPHATASE 93 IU/L (46-116); ANION GAP 6 (8-16); ASPARTATE AMINO TRANSFERASE 22 U/L (10-37); BILIRUBIN,TOTAL 0.5 MG/DL (0.1-1.0); BLOOD UREA NITROGEN 15 MG/DL (7-18); BUN/CREATININE RATIO 15.3 (10.0-20.0); CALCIUM 8.4 MG/DL (8.5-10.1); CHLORIDE 107 MMOL/L (99-107); CREATININE 0.98 MG/DL (0.40-0.90); GLUCOSE 97 MG/DL (70-104); POTASSIUM 3.3 MMOL/L (3.5-5.1); SODIUM 142 MMOL/L (135-145); TOTAL CARBON DIOXIDE 29.2 MMOL/L (24-32); eCRCL 36 ML/MIN; eGFR 55 ML/MIN
[2024-01-19] MEDS: potassium Cl 20 mEq SR tablet PO PRN ×2 (08:26→21:01)
[2024-01-19] MEDS: LORazepam 1 MG tablet PO ONE (16:30)
[2024-01-19] MEDS ORDERED: ipratropium/albuterol 3ml nebule NEB PRN (16:45)
[2024-01-19] MEDS ORDERED: potassium Cl 20 mEq SR tablet PO PRN (20:55)
[2024-01-19] MEDS ORDERED: magnesium sulf-water 2g/50mL 50 ML IV PRN (20:55)
[2024-01-19] MEDS ORDERED: magnesium sulf-water 4G/100mL 100 ML IV PRN (20:55)
[2024-01-19] MEDS ORDERED: potassium Cl 40MEQ/1/2NS 520ml 520 ML IV PRN (20:55)
[2024-01-19] MEDS ORDERED: magnesium Cl slow-release 64mg tablet PO PRN (20:55)
[2024-01-20 05:59] LABS: BASOPHILS # (AUTO) 0.1 X10'3 (0-0.2); BASOPHILS % (AUTO) 0.8 % (0-1); EOSINOPHILS # (AUTO) 0.5 X10'3 (0-0.9); EOSINOPHILS % (AUTO) 7.9 % (0-6); HEMATOCRIT 31.8 % (35.0-45.0); HEMOGLOBIN 10.3 g/dl (12.0-16.0); LYMPHOCYTES # (AUTO) 1.5 X10'3 (1.1-4.8); LYMPHOCYTES % (AUTO) 23.2 % (21-51); MEAN CORPUSCULAR HGB CONC 32.6 g/dL (33.0-36.5); MEAN CORPUSCULAR VOLUME 82.9 FL (78-98); MEAN PLATELET VOLUME 8.1 FL (7.4-10.4); MONOCYTES # (AUTO) 0.5 X10'3 (0-0.9); MONOCYTES % (AUTO) 8.6 % (2-12); NEUTROPHILS # (AUTO) 3.8 X10'3 (1.8-7.7); NEUTROPHILS % (AUTO) 59.5 % (42-75); PLATELET COUNT 214 X10'3 (140-440); RED BLOOD COUNT 3.83 X10'6 (4.20-5.60); RED CELL DISTRIBUTION WIDTH 16.2 % (11.5-14.5); WHITE BLOOD COUNT 6.4 X10'3 (4.5-11.0)
[2024-01-20 06:00] VITALS: BP 185/72; PULSE 76; RESP 16; TEMP 96.7; O2SAT 94
[2024-01-20 06:22] LABS: ALANINE AMINOTRANSFERASE 14 U/L (12-78); ALBUMIN 2.5 G/DL (3.4-5.0); ALBUMIN/GLOBULIN RATIO 0.7 (1.1-1.5); ALKALINE PHOSPHATASE 93 IU/L (46-116); ANION GAP 6 (8-16); ASPARTATE AMINO TRANSFERASE 21 U/L (10-37); BILIRUBIN,TOTAL 0.5 MG/DL (0.1-1.0); BLOOD UREA NITROGEN 17 MG/DL (7-18); BUN/CREATININE RATIO 18.9 (10.0-20.0); CALCIUM 8.7 MG/DL (8.5-10.1); CHLORIDE 108 MMOL/L (99-107); GLUCOSE 96 MG/DL (70-104); MAGNESIUM 2.2 MG/DL (1.5-2.4); POTASSIUM 3.9 MMOL/L (3.5-5.1); SODIUM 142 MMOL/L (135-145); TOTAL CARBON DIOXIDE 28.5 MMOL/L (24-32); eCRCL 39 ML/MIN; eGFR 60 ML/MIN
[2024-01-20] MEDS: atorvastatin 20mg tablet PO SCH (07:43)
[2024-01-20 07:47] VITALS: BP_SYST 132
[2024-01-20] MEDS ORDERED: K and/or MAG REPLACEMENT MC SCH (08:00)
[2024-01-20 09:18] VITALS: PULSE 75; RESP 18; O2SAT 95
== END 2024-01-20 16:30 | DRG 65 ==
LOC: ER 15:28 → ED HOLD 17:50 → ORTHO 4S 01-17 11:57
PROVIDERS: ADMIT Internal Medicine; ATTEND Internal Medicine
PROC: B3251ZZ Computerized Tomography (CT Scan) of Bilateral Common Carotid Arteries using Low Osmolar Contrast (ICD-10-PCS; principal; 2024-01-16)
PROC: B32G1ZZ Computerized Tomography (CT Scan) of Bilateral Vertebral Arteries using Low Osmolar Contrast (ICD-10-PCS; 2024-01-16)
PROC: B32R1ZZ Computerized Tomography (CT Scan) of Intracranial Arteries using Low Osmolar Contrast (ICD-10-PCS; 2024-01-16)
PROC: B3281ZZ Computerized Tomography (CT Scan) of Bilateral Internal Carotid Arteries using Low Osmolar Contrast (ICD-10-PCS; 2024-01-16)
DX: I63.9 Cerebral infarction, unspecified (principal); I48.20 Chronic atrial fibrillation, unspecified; Z68.42 Body mass index [BMI] 45.0-49.9, adult; N17.9 Acute kidney failure, unspecified; I50.20 Unspecified systolic (congestive) heart failure; E66.9 Obesity, unspecified; M17.0 Bilateral primary osteoarthritis of knee; I34.0 Nonrheumatic mitral (valve) insufficiency; D64.9 Anemia, unspecified; E87.6 Hypokalemia; K58.8 Other irritable bowel syndrome; I11.0 Hypertensive heart disease with heart failure; I70.298 Other atherosclerosis of native arteries of extremities, other extremity; R32 Unspecified urinary incontinence; Z79.01 Long term (current) use of anticoagulants; Z85.3 Personal history of malignant neoplasm of breast; Z87.891 Personal history of nicotine dependence; Z95.0 Presence of cardiac pacemaker; Z88.2 Allergy status to sulfonamides; Z88.8 Allergy status to other drugs, medicaments and biological substances; Z95.2 Presence of prosthetic heart valve; Z79.82 Long term (current) use of aspirin
CPT/HCPCS: 36415; 70450; 70496; 70498; 70551; 71045; 80048; 80053; 80061; 83036; 83735; 84443; 85025; 85610; 85730; 87081; 92507; 92508; 92616; 93005; 93308; 93922; 93926; 93971; 94760; 97110; 97163; 97530; 99285; G0378; J7030; Q9967